=== PATIENT | female | born 1990 | race Caucasian/White ===

== ENCOUNTER 2017-07-03 00:09 | Inpatient (IN) | payer SELFPAY ==
[2017-07-03] MEDS ORDERED: Butorphanol 1 MG/ML SDV IVPUSH PRN (00:21)
[2017-07-03] MEDS ORDERED: Nalbuphine 10 MG/1 ML Vial IVPUSH PRN (00:21)
[2017-07-03] MEDS ORDERED: Lidocaine 1% 50 ML MDV INJECT PRN (00:21)
[2017-07-03] MEDS ORDERED: Methylergonovine 0.2 MG/1 ML Amp IM PRN (00:21)
[2017-07-03] MEDS ORDERED: Sodium Chloride 0.9% 2.5 ML Syringe FLUSH PRN (00:21)
[2017-07-03] MEDS ORDERED: Misoprostol 200 MCG Tab PO PRN (00:21)
[2017-07-03] MEDS ORDERED: Water For Irrigation,Sterile 1,000 ML Container IRR PRN (00:21)
[2017-07-03] MEDS ORDERED: Sodium Chloride 0.9% 10 ML Syringe FLUSH PRN (00:21)
[2017-07-03] MEDS ORDERED: Carboprost Tromethamine 250 MCG/1 ML Amp IM PRN (00:21)
[2017-07-03] MEDS ORDERED: Terbutaline 1 MG/ML SDV SUBCUT PRN (00:23)
[2017-07-03] MEDS ORDERED: Misoprostol 25 MCG (1/4 of 100 MCG) Tab VAG PRN (00:23)
[2017-07-03] MEDS ORDERED: Oxytocin/0.9 % Sodium Chloride 30 UNIT/500 ML BAG IV SCH ×2 (00:30)
[2017-07-03] MEDS ORDERED: Misoprostol 25 MCG (1/4 of 100 MCG) Tab VAG SCH (00:30)
[2017-07-03] MEDS ORDERED: Diphtheria,Pertussis(Acell),Tetanus Vaccine 0.5 ML Syringe IM ONE (00:31)
[2017-07-03] MEDS: Lactated Ringers 1,000 ML IV SCH ×4 (00:42→09:35)
--- NOTE | 2017-07-03 04:12 | PCM.LDHP ---
L&D History of Present Illness - General Date of Service: 07/03/17 Admit Problem/Dx: Patient Status Order with Admit Dx/Problem 07/03/17 00:21 Patient Status [ADT] Routine Admission Diagnosis/Problem Admission Diagnosis/Problem Planned 07/03/17 04:07 27 yo EDC 07/06/2017 39 4/7wks term IOL, O neg, Rubella equivocal, GBS neg Source of Information: Patient History Limitations: Reports: No Limitations - History of Present Illness Improves with: Reports: None Worsens with: Reports: None Associated Symptoms: Reports: N - Related Data Allergies/Adverse Reactions: Allergies Allergy/AdvReac Type Severity Reaction Status Date / Time No Known Allergies Allergy Verified 07/03/17 00:19 Home Medications: Home Meds PNV95/Ferrous Fumarate/FA [ Vitamin Tablet] 1 tab PO DAILY 07/03/17 [ History] levETIRAcetam [Levetiracetam] 0.5 tab PO DAILY 07/03/17 [History] Past Medical History 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: , Other (See Below) Other OB/BYN History: HPV 9 years ago, states 'clear since' - Infectious Disease History Infectious Disease History: Reports: Human Papilloma Virus (HPV), Other (See Below) Other Infectious Disease History: 9 years ago - Past Surgical History HEENT Surgical History: Reports: Adenoidectomy, Tonsillectomy Social & Family History - Family History Family Medical History: Noncontributory - Tobacco Use Smoking Status *Q: Former Smoker Used Tobacco, but Quit: Yes Month Tobacco Last Used: September Second Hand Smoke Exposure: Yes - Caffeine Use Caffeine Use: Reports: None - Recreational Drug Use Recreational Drug Use: No H&P Review of Systems - Review of Systems: Review Of Systems: See Below General: Reports: No Symptoms HEENT: Reports: No Symptoms Pulmonary: Reports: No Symptoms Cardiovascular: Reports: No Symptoms Gastrointestinal: Reports: No Symptoms Genitourinary: Reports: No Symptoms Musculoskeletal: Reports: No Symptoms Skin: Reports: No Symptoms Psychiatric: Reports: No Symptoms Neurological: Reports: No Symptoms Hematologic/Lymphatic: Reports: No Symptoms Immunologic: Reports: No Symptoms L&D Exam - Exam Exam: See Below - Vital Signs Weight: 94.801 kg - OB Specific Contraction Intensity: Moderate to Strong Movement: Active Heart Tones: Present Heart Tones per Min: 140 Heart Rate (FHR) Variability: Marked (>25 bpm) Presentation: Vertex - Tripp Score Tripp Score Cervix Position: Midposition Tripp Score Consistency: Soft Tripp Score Effacement: 51-70% Tripp Score Dilation: 3-4 cm Tripp Score 's Station: -2 Tripp Score Total: 8 - Exam General: Alert, Oriented, Cooperative HEENT: Hearing Intact Lungs: Clear to Auscultation, Normal Respiratory Effort Cardiovascular: Regular Rate, Regular Rhythm GI/Abdominal Exam: Normal Bowel Sounds, Soft (gravid) Rectal Exam: Deferred Back Exam: Full Range of Motion Extremities: Normal Range of Motion, Non-Tender, No Pedal Edema, Normal Capillary Refill Skin: Warm, Dry, Intact Neurological: Reflexes Equal Bilateral, Normal Speech, Normal Tone Psychiatric: Alert, Normal Affect, Normal Mood - Patient Data Lab Results Last 24 hrs: Laboratory Results - last 24 hr 07/03/17 07/03/17 Range/Units 00:41 00:41 WBC 12.42 H (4.0-11.0) K/uL RBC 4.07 L (4.30-5.90) M/uL Hgb 11.6 L (12.0-16.0) g/dL Hct 34.9 L (36.0-46.0) % MCV 85.7 (80.0-98.0) fL MCH 28.5 (27.0-32.0) pg MCHC 33.2 (31.0-37.0) g/dL RDW Std Deviation 43.0 (28.0-62.0) fl RDW Coeff of Los 14 (11.0-15.0) % Plt Count 250 (150-400) K/uL MPV 10.10 (7.40-12.00) fL Blood Type O NEGATIVE Antibody Screen NEGATIVE Result Diagrams: 07/03/17 00:41 - Problem List (1) Supervision of normal IUP (intrauterine ) in multigravida SNOMED Code(s): 724355929, 983596866 ICD Code: Z34.80 - ENCOUNTER FOR SUPRVSN OF NORMAL , UNSP TRIMESTER Status: Acute Priority: High Current Visit: Yes Qualifiers: Trimester: third trimester Qualified Code(s): Z34.83 - Encounter for supervision of other normal , third trimester Problem List Initiated/Reviewed/Updated: Yes Orders Last 24hrs: Active Orders 24 hr Category Date Time Status Patient Status [ADT] Routine ADT 07/03/17 00:21 Active Bedrest Bathroom Privileges [RC] ASDIRECTED Care 07/03/17 00:24 Active Communication Order [RC] ASDIRECTED Care 07/03/17 00:24 Active Communication Order [RC] ASDIRECTED Care 07/03/17 00:24 Active Communication Order [RC] ASDIRECTED Care 07/03/17 00:24 Active Heart Tones [RC] CONTINUOUS Care 07/03/17 00:21 Active Non Stress Test [RC] PER UNIT ROUTINE Care 07/03/17 00:21 Active May Shower [RC] ASDIRECTED Care 07/03/17 00:21 Active Notify Provider [RC] PRN Care 07/03/17 00:21 Active Notify Provider [RC] PRN Care 07/03/17 00:24 Active Notify Provider [RC] PRN Care 07/03/17 00:24 Active Notify Provider [RC] STAT Care 07/03/17 00:24 Active Oxygen Therapy [RC] ASDIRECTED Care 07/03/17 00:24 Active Up ad Ghazala [RC] ASDIRECTED Care 07/03/17 00:21 Active Vaginal Exam [RC] PRN Care 07/03/17 00:21 Active Vaginal Exam [RC] PRN Care 07/03/17 00:24 Active Vital Signs [RC] PER UNIT ROUTINE Care 07/03/17 00:21 Active Vital Signs [RC] PER UNIT ROUTINE Care 07/03/17 00:24 Active Butorphanol [Stadol] Med 07/03/17 00:21 Active 1 mg IVPUSH Q1H PRN Carboprost Tromethamine [Hemabate DS] Med 07/03/17 00:21 Active 250 mcg IM ASDIRECTED PRN Lactated Ringers [Ringers, Lactated] 1,000 ml Med 07/03/17 00:30 Active IV ASDIRECTED Lidocaine 1% [Xylocaine 1%] Med 07/03/17 00:21 Active 50 ml INJECT .ONCE PRN Methylergonovine [Methergine] Med 07/03/17 00:21 Active 0.2 mg IM ASDIRECTED PRN Misoprostol [Cytotec] Med 07/03/17 00:21 Active 200 mcg PO .ONCE PRN Misoprostol [Cytotec] Med 07/03/17 00:30 Active 25 mcg PO Q4H Misoprostol [Cytotec] Med 07/03/17 00:30 Active 25 mcg VAG .ONCE Misoprostol [Cytotec] Med 07/03/17 00:23 Active 25 mcg VAG Q4H PRN Nalbuphine [Nubain] Med 07/03/17 00:21 Active 10 mg IVPUSH Q1H PRN Oxytocin/0.9 % Sodium Chloride [Oxytocin 30 Unit/500 ML Med 07/03/17 00:30 Active -NS] 30 unit in 500 ml IV TITRATE Oxytocin/0.9 % Sodium Chloride [Oxytocin 30 Unit/500 ML Med 07/03/17 00:30 Active -NS] 30 unit in 500 ml IV TITRATE Sodium Chloride 0.9% [Saline Flush] Med 07/03/17 00:21 Active 10 ml FLUSH ASDIRECTED PRN Sodium Chloride 0.9% [Saline Flush] Med 07/03/17 00:21 Active 2.5 ml FLUSH ASDIRECTED PRN Terbutaline [Brethine] Med 07/03/17 00:23 Active 0.25 mg SUBCUT ASDIRECTED PRN Water For Irrigation,Sterile [Sterile Water for Med 07/03/17 00:21 Active Irrigation] 1,000 ml IRR ASDIRECTED PRN Scalp Electrode [WOMSER] Per Unit Routine Oth 07/03/17 00:21 Ordered Medication Administration Instruction [OM.PC] Q3H Oth 07/03/17 00:30 Ordered Peripheral IV Insertion Adult [OM.PC] Routine Oth 07/03/17 00:21 Ordered Resuscitation Status Routine Resus Stat 07/03/17 00:21 Ordered Medication Orders Butorphanol Tartrate (Stadol) 1 mg IVPUSH Q1H PRN PRN Reason: Pain Carboprost Tromethamine (Hemabate Ds) 250 mcg IM ASDIRECTED PRN PRN Reason: Post Hemorrhage Lactated Ringer's (Ringers, Lactated) 1,000 mls @ 150 mls/hr IV ASDIRECTED MANNY Last Admin: 07/03/17 03:59 Dose: 999 mls/hr Infusion: 07/03/17 03:59 Dose: 150 mls/hr Admin: 07/03/17 00:42 Dose: 150 mls/hr Oxytocin/Sodium Chloride (Oxytocin 30 Unit/500 Ml-Ns) 30 unit in 500 mls @ 999 mls/hr IV TITRATE MANNY Oxytocin/Sodium Chloride (Oxytocin 30 Unit/500 Ml-Ns) 30 unit in 500 mls @ 2 mls/hr IV TITRATE MANNY; 2 MUNITS/MIN PRN Reason: Protocol Last Admin: 07/03/17 01:09 Dose: 2 munits/min, 2 mls/hr Lidocaine HCl (Xylocaine 1%) 50 ml INJECT .ONCE PRN PRN Reason: Laceration repair Methylergonovine Maleate (Methergine) 0.2 mg IM ASDIRECTED PRN PRN Reason: Post Hemorrhage Misoprostol (Cytotec) 200 mcg PO .ONCE PRN PRN Reason: Post Hemorrhage Misoprostol (Cytotec) 25 mcg VAG .ONCE MANNY Misoprostol (Cytotec) 25 mcg VAG Q4H PRN PRN Reason: Cervical Ripening Misoprostol (Cytotec) 25 mcg PO Q4H MANNY Nalbuphine HCl (Nubain) 10 mg IVPUSH Q1H PRN PRN Reason: Pain (severe 7-10) Sodium Chloride (Saline Flush) 10 ml FLUSH ASDIRECTED PRN PRN Reason: Keep Vein Open Sodium Chloride (Saline Flush) 2.5 ml FLUSH ASDIRECTED PRN PRN Reason: Keep Vein Open Sterile Water (Sterile Water For Irrigation) 1,000 ml IRR ASDIRECTED PRN PRN Reason: delivery Terbutaline Sulfate (Brethine) 0.25 mg SUBCUT ASDIRECTED PRN PRN Reason: Tacysystole Assessment/Plan Comment:: IOL A: 27 yo EDC 07/06/2017 39 4/7wks term IOL, O neg, Rubella equivocal, GBS neg P: Admit for IOL, Pitocin per protocol, epidural prn, anticipate
[2017-07-03] MEDS ORDERED: fentaNYL 100 MCG/2 ML SDV ONE (04:18)
[2017-07-03] MEDS ORDERED: Ropivacaine HCl/PF 100 ML ONE (04:18)
--- NOTE | 2017-07-03 04:24 | PCM.PREANE ---
Preanesthetic Assessment - Procedure Proposed Procedure: MÓNICA - Anesthesia/Transfusion/Family Hx Anesthesia History: Prior Anesthesia Without Reaction Transfusion History: No Prior Transfusion(s) - Review of Systems General: No Symptoms Pulmonary: No Symptoms Cardiovascular: No Symptoms Gastrointestinal: No Symptoms Neurological: No Symptoms Other: Reports: None - Physical Assessment Height: 1.6 m Weight: 94.801 kg ASA Class: 1 Mental Status: Alert & Oriented x3 Airway Class: Mallampati = 2 Dentition: Reports: Normal Dentition Thyro-Mental Finger Breadths: 3 Mouth Opening Finger Breadths: 4 ROM/Head Extension: Full Lungs: Clear to Auscultation, Normal Respiratory Effort Cardiovascular: Regular Rate, Regular Rhythm - Lab Values: Laboratory Last Values WBC 12.42 K/uL (4.0-11.0) H 07/03/17 00:41 RBC 4.07 M/uL (4.30-5.90) L 10 00:41 Hgb 11.6 g/dL (12.0-16.0) L 07/03/17 00:41 Hct 34.9 % (36.0-46.0) L 10 00:41 MCV 85.7 fL (80.0-98.0) 10 00:41 MCH 28.5 pg (27.0-32.0) 07/03/17 00:41 MCHC 33.2 g/dL (31.0-37.0) 07/03/17 00:41 RDW Std Deviation 43.0 fl (28.0-62.0) 07/03/17 00:41 RDW Coeff of Los 14 % (11.0-15.0) 07/03/17 00:41 Plt Count 250 K/uL (150-400) 07/03/17 00:41 MPV 10.10 fL (7.40-12.00) 10 00:41 Blood Type O NEGATIVE 07/03/17 00:41 Antibody Screen NEGATIVE 07/03/17 00:41 - Allergies Allergies/Adverse Reactions: Allergies Allergy/AdvReac Type Severity Reaction Status Date / Time No Known Allergies Allergy Verified 07/03/17 00:19 - Blood Blood Available: Yes Product(s) Available: PRBC - Anesthesia Plan Pre-Op Medication Ordered: None - Acknowledgements Anesthesia Type Planned: Epidural Pt an Appropriate Candidate for the Planned Anesthesia: Yes Alternatives and Risks of Anesthesia Discussed w Pt/Guardian: Yes Pt/Guardian Understands and Agrees with Anesthesia Plan: Yes PreAnesthesia Questionnaire - Past Health History Medical/Surgical History: Denies Medical/Surgical History HEENT History: Reports: None Cardiovascular History: Reports: None Respiratory History: Reports: None Gastrointestinal History: Reports: None Genitourinary History: Reports: None 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: , Other (See Below) : 3 Para: 2 Other OB/BYN History: HPV 9 years ago, states 'clear since' Musculoskeletal History: Reports: None Neurological History: Reports: None Psychiatric History: Reports: None Endocrine/Metabolic History: Reports: None Hematologic History: Reports: None Immunologic History: Reports: None - Infectious Disease History Infectious Disease History: Reports: Human Papilloma Virus (HPV), Other (See Below) Other Infectious Disease History: 9 years ago - Past Surgical History HEENT Surgical History: Reports: Adenoidectomy, Tonsillectomy - SUBSTANCE USE Smoking Status *Q: Former Smoker Second Hand Smoke Exposure: Yes Recreational Drug Use History: No - HOME MEDS Home Medications: Home Meds PNV95/Ferrous Fumarate/FA [ Vitamin Tablet] 1 tab PO DAILY 07/03/17 [ History] levETIRAcetam [Levetiracetam] 0.5 tab PO DAILY 07/03/17 [History] - CURRENT (IN HOUSE) MEDS Current Meds: Current Medications Butorphanol Tartrate (Stadol) 1 mg IVPUSH Q1H PRN PRN Reason: Pain Carboprost Tromethamine (Hemabate Ds) 250 mcg IM ASDIRECTED PRN PRN Reason: Post Hemorrhage Lactated Ringer's (Ringers, Lactated) 1,000 mls @ 150 mls/hr IV ASDIRECTED MANNY Last Admin: 07/03/17 03:59 Dose: 999 mls/hr Oxytocin/Sodium Chloride (Oxytocin 30 Unit/500 Ml-Ns) 30 unit in 500 mls @ 999 mls/hr IV TITRATE MANNY Oxytocin/Sodium Chloride (Oxytocin 30 Unit/500 Ml-Ns) 30 unit in 500 mls @ 2 mls/hr IV TITRATE MANNY; 2 MUNITS/MIN PRN Reason: Protocol Last Admin: 07/03/17 01:09 Dose: 2 munits/min, 2 mls/hr Lidocaine HCl (Xylocaine 1%) 50 ml INJECT .ONCE PRN PRN Reason: Laceration repair Methylergonovine Maleate (Methergine) 0.2 mg IM ASDIRECTED PRN PRN Reason: Post Hemorrhage Misoprostol (Cytotec) 200 mcg PO .ONCE PRN PRN Reason: Post Hemorrhage Misoprostol (Cytotec) 25 mcg VAG .ONCE MANNY Misoprostol (Cytotec) 25 mcg VAG Q4H PRN PRN Reason: Cervical Ripening Misoprostol (Cytotec) 25 mcg PO Q4H MANNY Nalbuphine HCl (Nubain) 10 mg IVPUSH Q1H PRN PRN Reason: Pain (severe 7-10) Sodium Chloride (Saline Flush) 10 ml FLUSH ASDIRECTED PRN PRN Reason: Keep Vein Open Sodium Chloride (Saline Flush) 2.5 ml FLUSH ASDIRECTED PRN PRN Reason: Keep Vein Open Sterile Water (Sterile Water For Irrigation) 1,000 ml IRR ASDIRECTED PRN PRN Reason: delivery Terbutaline Sulfate (Brethine) 0.25 mg SUBCUT ASDIRECTED PRN PRN Reason: Tacysystole Discontinued Medications Diphtheria/Tetanus/Acell Pertussis (Adacel) 0.5 ml IM .ONCE ONE Stop: 07/03/17 00:32 Fentanyl (Sublimaze) Confirm Administered Dose 100 mcg .ROUTE .STK-MED ONE Stop: 07/03/17 04:19 Ropivacaine (Naropin 0.2%) Confirm Administered Dose 100 mls @ as directed .ROUTE .STK-MED ONE Stop: 07/03/17 04:19
--- NOTE | 2017-07-03 10:46 | PCM.DEL ---
L & D Note - General Info Date of Service: 07/03/17 Mother's Due Date: 07/06/17 - Delivery Note Labor: Induced by Oxytocin Delivery Outcome: Livebirth Delivery Method: Spontaneous Vaginal Delivery-Single Infant Delivery Mode: Spontaneous Presentation: Vertex Nuchal Cord: Present Anesthesia Type: Epidural Amniotic Fluid Description: Clear Episiotomy Type: None Laceration: 2nd Degree, Perineal Suture type: Vicryl Suture size: 3-0 Placenta: Intact, Spontaneous Cord: 3 Vessels Estimated Blood Loss: 150 Resuscitation Needed: No Mission: Stimulated Score 1 min: 7 Score 5 min: 9 Second Stage Interventions: Reports: Pushing Effectively Delivery Comments (Free Text/Narrative):: of viable baby boy over intact perineum. Head delivered with good pushing, shoulders and body followed easily. to mothers abdomen with RN at bs for evaluation. Delayed cord clamping. Pitocin to IVF. Cord clamped and cut by FOB. Inspection noted 2nd deg perineal laceration that i repaired with a 3-0vic in the usual manor, well approximated and homeostasis obtained. Placenta delivered grossly intact, 3VC, Bimanual normal. EBL 150cc, APGARS 7/9, Wt: 7lb 4oz. and mother left in stable condition for recovery. Induction Criteria - Tripp Score Tripp Score Dilation: 3-4 cm Tripp Score Effacement: 60-70% Tripp Score Infant's Station: -2 Tripp Score Consistency: Soft Tripp Score Cervix Position: Midposition Tripp Score Total: 8 Tripp Score Presenting Part: Reports: Cephalic - Induction Gestational Age >/= 39 wks: Yes Medical Indication: term Estimated Pelvis: Reports: Adequate Reassuring Monitoring Strip: Yes Absence of Tachy Systole: Yes - General Info Date of Service: 07/03/17 Admission Dx/Problem (Free Text): Patient Status Order with Admit Dx/Problem 07/03/17 00:21 Patient Status [ADT] Routine Admission Diagnosis/Problem Admission Diagnosis/Problem Planned 07/03/17 04:07 27 yo EDC 07/06/2017 39 4/7wks term IOL, O neg, Rubella equivocal, GBS neg Functional Status: Reports: Pain Controlled - Review of Systems General: Reports: No Symptoms HEENT: Reports: No Symptoms Pulmonary: Reports: No Symptoms Cardiovascular: Reports: No Symptoms Gastrointestinal: Reports: No Symptoms Genitourinary: Reports: No Symptoms Musculoskeletal: Reports: No Symptoms Skin: Reports: No Symptoms Neurological: Reports: No Symptoms Psychiatric: Reports: No Symptoms - Patient Data Weight - Most Recent: 94.801 kg Lab Results Last 24 Hours: Laboratory Results - last 24 hr 07/03/17 07/03/17 Range/Units 00:41 00:41 WBC 12.42 H (4.0-11.0) K/uL RBC 4.07 L (4.30-5.90) M/uL Hgb 11.6 L (12.0-16.0) g/dL Hct 34.9 L (36.0-46.0) % MCV 85.7 (80.0-98.0) fL MCH 28.5 (27.0-32.0) pg MCHC 33.2 (31.0-37.0) g/dL RDW Std Deviation 43.0 (28.0-62.0) fl RDW Coeff of Los 14 (11.0-15.0) % Plt Count 250 (150-400) K/uL MPV 10.10 (7.40-12.00) fL Blood Type O NEGATIVE Antibody Screen NEGATIVE Med Orders - Current: Current Medications Butorphanol Tartrate (Stadol) 1 mg IVPUSH Q1H PRN PRN Reason: Pain Carboprost Tromethamine (Hemabate Ds) 250 mcg IM ASDIRECTED PRN PRN Reason: Post Hemorrhage Lactated Ringer's (Ringers, Lactated) 1,000 mls @ 150 mls/hr IV ASDIRECTED MANNY Last Admin: 07/03/17 09:35 Dose: 150 mls/hr Oxytocin/Sodium Chloride (Oxytocin 30 Unit/500 Ml-Ns) 30 unit in 500 mls @ 999 mls/hr IV TITRATE MANNY Oxytocin/Sodium Chloride (Oxytocin 30 Unit/500 Ml-Ns) 30 unit in 500 mls @ 2 mls/hr IV TITRATE MANNY; 2 MUNITS/MIN PRN Reason: Protocol Last Titration: 07/03/17 02:48 Dose: 6 munits/min, 6 mls/hr Lidocaine HCl (Xylocaine 1%) 50 ml INJECT .ONCE PRN PRN Reason: Laceration repair Methylergonovine Maleate (Methergine) 0.2 mg IM ASDIRECTED PRN PRN Reason: Post Hemorrhage Misoprostol (Cytotec) 200 mcg PO .ONCE PRN PRN Reason: Post Hemorrhage Misoprostol (Cytotec) 25 mcg VAG .ONCE MANNY Misoprostol (Cytotec) 25 mcg VAG Q4H PRN PRN Reason: Cervical Ripening Misoprostol (Cytotec) 25 mcg PO Q4H MANNY Nalbuphine HCl (Nubain) 10 mg IVPUSH Q1H PRN PRN Reason: Pain (severe 7-10) Sodium Chloride (Saline Flush) 10 ml FLUSH ASDIRECTED PRN PRN Reason: Keep Vein Open Sodium Chloride (Saline Flush) 2.5 ml FLUSH ASDIRECTED PRN PRN Reason: Keep Vein Open Sterile Water (Sterile Water For Irrigation) 1,000 ml IRR ASDIRECTED PRN PRN Reason: delivery Terbutaline Sulfate (Brethine) 0.25 mg SUBCUT ASDIRECTED PRN PRN Reason: Tacysystole Discontinued Medications Diphtheria/Tetanus/Acell Pertussis (Adacel) 0.5 ml IM .ONCE ONE Stop: 07/03/17 00:32 Fentanyl (Sublimaze) Confirm Administered Dose 100 mcg .ROUTE .STK-MED ONE Stop: 07/03/17 04:19 Last Admin: 07/03/17 07:40 Dose: Not Given Ropivacaine (Naropin 0.2%) Confirm Administered Dose 100 mls @ as directed .ROUTE .STK-MED ONE Stop: 07/03/17 04:19 Last Admin: 07/03/17 07:40 Dose: Not Given - Exam General: Alert, Oriented, Cooperative, No Acute Distress Lungs: Normal Respiratory Effort GI/Abdominal Exam: Soft, Non-Tender (Female) Exam: Normal External Exam, Normal Bimanual Exam, Vaginal Bleeding, Vaginal Lesions (with repair) Back Exam: Full Range of Motion Extremities: Normal Range of Motion, Non-Tender, No Pedal Edema, Normal Capillary Refill Skin: Warm, Dry, Intact Wound/Incisions: Healing Well Neurological: No New Focal Deficit, Normal Speech, Normal Tone Psy/Mental Status: Alert, Normal Affect, Normal Mood - Problem List & Annotations (1) Supervision of normal IUP (intrauterine ) in multigravida SNOMED Code(s): 905693344, 574349994 Code(s): Z34.80 - ENCOUNTER FOR SUPRVSN OF NORMAL , UNSP TRIMESTER Status: Acute Priority: High Current Visit: Yes Qualifiers: Trimester: third trimester Qualified Code(s): Z34.83 - Encounter for supervision of other normal , third trimester (2) (normal spontaneous vaginal delivery) SNOMED Code(s): 13125495 Code(s): O80 - ENCOUNTER FOR FULL-TERM UNCOMPLICATED DELIVERY Status: Acute Priority: High Current Visit: Yes - Problem List Review Problem List Initiated/Reviewed/Updated: Yes - Assessment Assessment:: Delivery of viable male (Lg) APGARS 7/9, Wt: 7lb 4oz. 2nd degree lac with repair, EBL 150cc, Mother and stable bonding well. - Plan Plan:: IOL A: 27 yo EDC 07/06/2017 39 4/7wks term IOL, O neg, Rubella equivocal, GBS neg P: Admit for IOL, Pitocin per protocol, epidural prn, anticipate Delivery Routine pp plan of care
[2017-07-03] MEDS ORDERED: Bisacodyl 10 MG Supp RECTAL PRN (10:50)
[2017-07-03] MEDS ORDERED: Docusate Sodium 100 MG Cap PO PRN (10:50)
[2017-07-03] MEDS ORDERED: Ibuprofen 400 MG Tab PO PRN (10:50)
[2017-07-03] MEDS ORDERED: Witch Hazel Medicated Pads 40/Jar TOP PRN (10:50)
[2017-07-03] MEDS ORDERED: Measles, Mumps & Rubella Vaccine 0.5 ML SDV SUBCUT ONE (10:50)
[2017-07-03] MEDS ORDERED: Acetaminophen 500 MG Tab PO PRN ×2 (10:50)
[2017-07-03] MEDS ORDERED: oxyCODONE 5 MG Tab PO PRN (10:50)
[2017-07-03] MEDS ORDERED: Ibuprofen 800 MG Tab PO PRN (10:50)
[2017-07-03] MEDS ORDERED: Lanolin 100% Cream 7 GM Tube TOP PRN (10:50)
[2017-07-03] MEDS ORDERED: Benzocaine/Menthol 20%-0.5% Spray 78 GM Cannister TOP PRN (10:50)
--- NOTE | 2017-07-03 17:14 | PCM48HPAN ---
Post Anesthesia Note - EVALUATION WITHIN 48HRS OF ANESTHETIC Vital Signs in Normal Range: Yes Patient Participated in Evaluation: Yes Respiratory Function Stable: Yes Airway Patent: Yes Cardiovascular Function Stable: Yes Hydration Status Stable: Yes Pain Control Satisfactory: Yes Nausea and Vomiting Control Satisfactory: Yes Mental Status Recovered: Yes - COMMENTS/OBSERVATIONS Free Text/Narrative:: Denies any complaints at this time.
[2017-07-03] MEDS: Misoprostol 200 MCG Tab PO SCH (20:09)
[2017-07-03] MEDS ORDERED: Rho(D) Immune Globulin 300 MCG/2 ML Syringe IM ONE (20:44)
--- NOTE | 2017-07-04 08:19 | PCM.DCSUM1 ---
Discharge Summary - Hospital Course Free Text/Narrative:: Discharge home with infant. Follow up in 6 weeks or sooner if needed. - Discharge Data Discharge Date: 07/04/17 Discharge Disposition: Home, Self-Care 01 Condition: Good - Discharge Diagnosis/Problem(s) (1) Supervision of normal IUP (intrauterine ) in multigravida SNOMED Code(s): 545860342, 146944420 ICD Code: Z34.80 - ENCOUNTER FOR SUPRVSN OF NORMAL , UNSP TRIMESTER Status: Acute Priority: High Current Visit: Yes Qualifiers: Trimester: third trimester Qualified Code(s): Z34.83 - Encounter for supervision of other normal , third trimester (2) (normal spontaneous vaginal delivery) SNOMED Code(s): 39942054 ICD Code: O80 - ENCOUNTER FOR FULL-TERM UNCOMPLICATED DELIVERY Status: Acute Priority: High Current Visit: Yes - Patient Instructions Diet: Usual Diet as Tolerated Activity: As Tolerated, Rest and Relax Today Driving: May Drive Today Showering/Bathing: May Shower Notify Provider of: Fever, Increased Pain, Swelling and Redness, Nausea and/or Vomiting Other/Special Instructions: Discharge home with . Follow up in 6 weeks or sooner if needed. - Discharge Plan Home Medications: Home Meds PNV95/Ferrous Fumarate/FA [ Vitamin Tablet] 1 tab PO DAILY 07/03/17 [ History] levETIRAcetam [Levetiracetam] 0.5 tab PO DAILY 07/03/17 [History] Referrals: [facility] [Outside] Joseph Solomon MD [Physician] - 08/13/17 1:30 pm - General Info Date of Service: 07/04/17 Admission Dx/Problem (Free Text: Patient Status Order with Admit Dx/Problem 07/03/17 00:21 Patient Status [ADT] Routine Admission Diagnosis/Problem Admission Diagnosis/Problem Planned 07/03/17 04:07 27 yo EDC 07/06/2017 39 4/7wks term IOL, O neg, Rubella equivocal, GBS neg Functional Status: Reports: Pain Controlled, Tolerating Diet, Ambulating, Urinating - Review of Systems General: Reports: No Symptoms HEENT: Reports: No Symptoms Pulmonary: Reports: No Symptoms Cardiovascular: Reports: No Symptoms Gastrointestinal: Reports: No Symptoms Genitourinary: Reports: No Symptoms Musculoskeletal: Reports: No Symptoms Skin: Reports: No Symptoms Neurological: Reports: No Symptoms Psychiatric: Reports: No Symptoms - Patient Data Vitals - Most Recent: Last Vital Signs Temp 36.4 C 07/04/17 04:20 Pulse 64 07/04/17 04:20 Resp 15 07/04/17 04:20 BP 95/55 L 07/04/17 04:20 Pulse Ox 97 07/04/17 04:20 Weight - Most Recent: 94.801 kg Lab Results - Last 24 hrs: Laboratory Results - last 24 hr 07/03/17 Range/Units 12:46 Screen NEGATIVE (NEGATIVE) RhIG Candidate? YES Rhogam Indicated YES, BABY RH POS H Med Orders - Current: Current Medications Acetaminophen (Tylenol Extra Strength) 500 mg PO Q4H PRN PRN Reason: Pain Acetaminophen (Tylenol Extra Strength) 1,000 mg PO Q4H PRN PRN Reason: Pain Benzocaine/Menthol (Dermoplast Pain Relief 20%-0.5% [place]) 78 gm TOP ASDIRECTED PRN PRN Reason: Perineal Comfort Measure Last Admin: 07/03/17 12:43 Dose: 1 can Bisacodyl (Dulcolax) 10 mg RECTAL .ONCE PRN PRN Reason: Constipation Docusate Sodium (Colace) 100 mg PO BID PRN PRN Reason: Constipation Emollient Ointment (Lansinoh Hpa) 0 gm TOP ASDIRECTED PRN PRN Reason: Sore Nipples Ibuprofen (Motrin) 400 mg PO Q4H PRN PRN Reason: Pain Ibuprofen (Motrin) 800 mg PO Q6H PRN PRN Reason: Pain Last Admin: 07/03/17 18:36 Dose: 800 mg Oxycodone HCl (Oxycodone) 5 mg PO Q2H PRN PRN Reason: Pain Witch Meenakshi (Tucks) 1 pad TOP ASDIRECTED PRN PRN Reason: comfort care Discontinued Medications Butorphanol Tartrate (Stadol) 1 mg IVPUSH Q1H PRN PRN Reason: Pain Carboprost Tromethamine (Hemabate Ds) 250 mcg IM ASDIRECTED PRN PRN Reason: Post Hemorrhage Diphtheria/Tetanus/Acell Pertussis (Adacel) 0.5 ml IM .ONCE ONE Stop: 07/03/17 00:32 Fentanyl (Sublimaze) Confirm Administered Dose 100 mcg .ROUTE .Mobibeam-Javelin ONE Stop: 07/03/17 04:19 Last Admin: 07/03/17 07:40 Dose: Not Given Lactated Ringer's (Ringers, Lactated) 1,000 mls @ 150 mls/hr IV ASDIRECTED MANNY Last Admin: 07/03/17 09:35 Dose: 150 mls/hr Oxytocin/Sodium Chloride (Oxytocin 30 Unit/500 Ml-Ns) 30 unit in 500 mls @ 999 mls/hr IV TITRATE MANNY Oxytocin/Sodium Chloride (Oxytocin 30 Unit/500 Ml-Ns) 30 unit in 500 mls @ 2 mls/hr IV TITRATE MANNY; 2 MUNITS/MIN PRN Reason: Protocol Last Titration: 07/03/17 02:48 Dose: 6 munits/min, 6 mls/hr Ropivacaine (Naropin 0.2%) Confirm Administered Dose 100 mls @ as directed .ROUTE [email or web address] ONE Stop: 07/03/17 04:19 Last Admin: 07/03/17 07:40 Dose: Not Given Lidocaine HCl (Xylocaine 1%) 50 ml INJECT .ONCE PRN PRN Reason: Laceration repair Measles/Mumps/Rubella Vaccine Live (M-M-R Ii Vaccine) 0.5 ml SUBCUT .ONCE ONE Stop: 07/03/17 10:51 Methylergonovine Maleate (Methergine) 0.2 mg IM ASDIRECTED PRN PRN Reason: Post Hemorrhage Misoprostol (Cytotec) 200 mcg PO .ONCE PRN PRN Reason: Post Hemorrhage Misoprostol (Cytotec) 25 mcg VAG .ONCE MANNY Misoprostol (Cytotec) 25 mcg VAG Q4H PRN PRN Reason: Cervical Ripening Misoprostol (Cytotec) 25 mcg PO Q4H MANNY Last Admin: 07/03/17 20:09 Dose: Not Given Nalbuphine HCl (Nubain) 10 mg IVPUSH Q1H PRN PRN Reason: Pain (severe 7-10) Sodium Chloride (Saline Flush) 10 ml FLUSH ASDIRECTED PRN PRN Reason: Keep Vein Open Sodium Chloride (Saline Flush) 2.5 ml FLUSH ASDIRECTED PRN PRN Reason: Keep Vein Open Sterile Water (Sterile Water For Irrigation) 1,000 ml IRR ASDIRECTED PRN PRN Reason: delivery Terbutaline Sulfate (Brethine) 0.25 mg SUBCUT ASDIRECTED PRN PRN Reason: Tacysystole - Exam General: Reports: Alert, Oriented, Cooperative, No Acute Distress Lungs: Reports: Clear to Auscultation, Normal Respiratory Effort Cardiovascular: Reports: Regular Rate, Regular Rhythm, No Murmurs GI/Abdominal Exam: Soft, Non-Tender (Female) Exam: Vaginal Bleeding Rectal (Female) Exam: Deferred Back Exam: Reports: Full Range of Motion Extremities: Normal Range of Motion, Non-Tender, No Pedal Edema, Normal Capillary Refill Skin: Reports: Warm, Dry, Intact Wound/Incisions: Reports: Healing Well Neurological: Reports: No New Focal Deficit, Normal Speech, Normal Tone Psy/Mental Status: Reports: Alert, Normal Affect, Normal Mood *Q Meaningful Use (DIS) - VTE *Q VTE Criteria *Q: - Stroke *Q Stroke Criteria *Q: - AMI *Q AMI Criteria *Q:
[2017-07-04 12:40] VITALS: BP 99/56
== END 2017-07-04 14:45 | disposition home or self-care (01) | DRG 775 ==
LOC: MW.OBCHECK 00:09 → MW.OB 00:10 → MW.OBCHECK 00:21 → OBSVTOIN 10:13
PROVIDERS: ADMIT Obstetrics & Gynecology; ATTEND Obstetrics & Gynecology
PROC: 10E0XZZ Delivery of Products of Conception, External Approach (ICD-10-PCS; principal; 2017-07-03)
PROC: 0KQM0ZZ Repair Perineum Muscle, Open Approach (ICD-10-PCS; 2017-07-03)
PROC: 3E033VJ Introduction of Other Hormone into Peripheral Vein, Percutaneous Approach (ICD-10-PCS; 2017-07-03)
PROC: 10907ZC Drainage of Amniotic Fluid, Therapeutic from Products of Conception, Via Natural or Artificial Opening (ICD-10-PCS; 2017-07-03)
PROC: 3E0234Z Introduction of Serum, Toxoid and Vaccine into Muscle, Percutaneous Approach (ICD-10-PCS; 2017-07-04)
DX: O70.1 Second degree perineal laceration during delivery (principal); Z37.0 Single live birth; Z3A.39 39 weeks gestation of pregnancy; Z23 Encounter for immunization
CPT/HCPCS: 59025; 59409; 85027; 85460; 86850; 86900; 86901; 90471; 90715; A9270-GY; J2590; J2790; J7120